=== PATIENT | female | born 1970 | race Caucasian/White ===

== ENCOUNTER 2017-01-03 08:14 | Day surgery (SDC) | payer OTHER ==
[2017-01-02 16:07] VITALS: BMI 35.3
[2017-01-03] MEDS ORDERED: PROPOFOL 20 ML ONE ×2 (10:22)
[2017-01-03 10:56] VITALS: TEMP 98.6
[2017-01-03 11:40] VITALS: BP 102/65; PULSE 83
--- NOTE | 2017-01-04 17:36 | PATH ---
Surgical Pathology Report Patient Name: ERNESTO POTTER [facility]. Rec. #: [id number] /Age/Gender: 1970 (Age: 46) / F Account: [id number] Location: [facility]-ENDOSCOPY Taken: 01/03/2017 Received: 01/03/2017 Reported: 01/04/2017 Physicians: Dio Treadwell M.D. Specimen(s) Received BX EROSION Clinical History Epigastric pain, GERD, nausea/vomiting Erosions antrum Final Diagnosis STOMACH, ANTRUM, EROSIONS, BIOPSY: GASTRIC OXYNTIC MUCOSA WITH SEVERE CHRONIC ACTIVE GASTRITIS. IMMUNOHISTOCHEMICAL STAIN FOR H. PYLORI IS POSITIVE (NUMEROUS). Electronically Signed Ambar Lerma M.D. Gross Description Received in formalin, labeled "biopsy erosions" are 2 jhaveri, irregular portions of soft tissue averaging 0.4 cm. in greatest dimension. The specimens are submitted in toto in one cassette. 01/03/201701/03/2017
== END 2017-01-03 13:06 | disposition home or self-care (01) ==
LOC: JASU-ENDO 08:14
PROVIDERS: ATTEND Internal Medicine Gastroenterology
PROC: 0DB68ZX Excision of Stomach, Via Natural or Artificial Opening Endoscopic, Diagnostic (ICD-10-PCS; principal; 2017-01-03 09:30)
DX: K25.9 Gastric ulcer, unspecified as acute or chronic, without hemorrhage or perforation (principal)
CPT/HCPCS: 84703; 88305-TC; 88342-TC

== ENCOUNTER 2017-09-28 15:34 | Emergency (ER) | payer OTHER ==
[2017-09-28 15:40] VITALS: BP 150/100; PULSE 115; TEMP 99.1; BMI 36.3
--- NOTE | 2017-09-28 17:08 | PDOC ---
Attending Attestation - HPI HPI: 09/28/17 17:51 47 year old female who denies any significant past medical history who presents to the ED complaining of chest pain that is pressure like, worse with inspiration, and radiates to the back. She reports associated left calf pain. She also reports associated headache. Noted to be tachycardic on arrival. Denies cigarette smoking, OCP use, long periods of immobilization. Denies f/c. Denies n/v/d. - Physicial Exam PE: 09/28/17 17:53 Constitutional: Awake, alert, oriented. No acute distress. Head: Normocephalic. Atraumatic Eyes: PERRL. EOMI. Conjunctivae are not pale. ENT: Mucous membranes are moist and intact. Posterior pharynx without exudates or erythema. Uvula midline. Neck: Supple. Full ROM. No lymphadenopathy. Cardiovascular: Regular rate. Regular rhythm. S1, S2 regular. Distal pulses are 2+ and symmetric. Pulmonary/Chest: No evidence of respiratory distress. Clear to auscultation bilaterally No wheezing, rales or rhonchi. Abdominal: Soft and non-distended. There is no tenderness. No rebound, guarding or rigidity. No organomegaly. No palpable masses. Good bowel sounds. Back: No CVA tenderness. Musculoskeletal: No edema. No cyanosis. No clubbing. Full range of motion in all extremities. Nocalf tenderness. Radial/pedal pulses are intact and 2+ bilaterally Skin: Skin is warm and dry. No petechiae. No purpura. Neurological: Alert and oriented to person, place, and time. Cranial nerves II -XII are grossly intact. Normal speech. Strength is grossly symmetric. No sensory deficits. Psychiatric: Good eye contact. Normal interaction, affect and behavior. - Medical Decision Making 09/28/17 17:54 Documentation prepared by Rufina Martinez, acting as medical voucher clerk for Conchita García DO. <Rufina Martinez - Last Filed: 09/28/17 17:51> - Resident Resident Name: SlyEdmond - ED Attending Attestation I have performed the following: I have examined & evaluated the patient, The case was reviewed & discussed with the resident, I agree w/resident's findings & plan, Exceptions are as noted - Critical Care Time Total Critical Care Time: 35 Critical Care Statement: The care of this patient involved high complexity decision making to prevent further life threatening deterioration of the patient 's condition and/or to evaluate & treat vital organ system(s) failure or risk of failure. - Medical Decision Making 09/28/17 17:08 I, Dr. Conchita García, DO, attest that this document has been prepared under my direction and personally reviewed by me in its entirety. I further attest, that it accurately reflects all work, treatment, procedures and medical decision -making performed by me. 09/28/17 19:06 a/p: 47yo female with tavera today, cp, and recent travel -had ankle swelling after the travel - pleuritic cp -also with low grade fever, has a cough - productive green sputum -suspect mucopurulent bronchitis vs PE -low grade temp -no meningeal signs -no neck ttp -neuro intact -will obtain labs, ekg, cxr, trop -cta chest -will monitor and reassess 09/28/17 19:23 cp resolved and tavera resolved after IV tylenol cta pending 09/29/17 00:25 cta negative for acute pathology will treat for mucopurulent bronchitis with azithromycin <Conchita García - Last Filed: 09/29/17 00:26> Heart Score/ECG Review - ECG Intrepretation Comment:: 09/28/17 19:23 sinus tach at 109, nl axis, S1Q3T3, no acute st elevations, abnl ekg <Conchita García - Last Filed: 09/29/17 00:26>
[2017-09-28] MEDS ORDERED: METOCLOPRAMIDE HCL INJECTION 10 MG/2 ML VIAL IVPUSH ONE (17:09)
[2017-09-28] MEDS ORDERED: ACETAMINOPHEN 1000 MG/100 ML VIAL (NON FORMULARY) IVPB ONE (17:09)
[2017-09-28] MEDS ORDERED: SODIUM CHLORIDE 0.9% 1000 ML INFUS.BAG IV ONE (17:09)
[2017-09-28] MEDS ORDERED: ACETAMINOPHEN INJECTION 100 ML IVPB ONE (18:06)
[2017-09-28] MEDS ORDERED: METOCLOPRAMIDE HCL INJECTION 10 MG/2 ML VIAL ONE (18:06)
--- NOTE | 2017-09-28 18:09 | PDOC ---
History of Present Illness - General Chief Complaint: Headache Stated Complaint: HEADACHE, ABD PAIN Time Seen by Provider: 09/28/17 15:42 History Source: Patient Exam Limitations: No Limitations - History of Present Illness Initial Comments: 09/28/17 18:04 47 F with no pmh presents to the ED for one day of pleuritic chest pain over sternum, cough, and right leg pain. States that the pain is radiating to the back, worse when she takes a deep breath. Works as a medical transporter, drives a lot all day. Came back from a 5 hour flight from [facility] 6 weeks ago. Denies hemoptysis, no hx of cancer, no recent surgery. BP equal in both arms, 96% room air, tachy at 116 - 120 Past History - Past Medical History Allergies/Adverse Reactions: Allergies Allergy/AdvReac Type Severity Reaction Status Date / Time No Known Allergies Allergy Verified 04/29/17 11:26 Home Medications: Ambulatory Orders Azithromycin [Zithromax 250mg Tablets -] 250 mg PO DAILY #4 tablet 09/28/17 Excedrin Extra Strength Caplet 2 tab PRN 09/28/17 COPD: No DVT: No GI Disorders: Yes (GERD) - Surgical History Cholecystectomy: Yes - Suicide/Smoking/Psychosocial Hx Smoking History: Never smoked Have you smoked in the past 12 months: No Hx Alcohol Use: No Drug/Substance Use Hx: No Substance Use Type: None Review of Systems - Review of Systems Able to Perform ROS?: Yes Is the patient limited Cuban proficient: No Constitutional: No: Symptoms Reported HEENTM: No: Symptoms Reported Respiratory: Yes: Cough, Shortness of Breath. No: Hemoptysis Cardiac (ROS): Yes: Chest Pain ABD/GI: Yes: See HPI. No: Abdominal Distended, Constipated, Diarrhea, Nausea : No: See HPI *Physical Exam - Vital Signs Last Vital Signs Temp Pulse Resp BP Pulse Ox 99.1 F 115 H 18 150/100 98 09/28/17 15:38 09/28/17 15:38 09/28/17 15:38 09/28/17 15:38 09/28/17 15:38 - Physical Exam General Appearance: Yes: Appropriately Dressed, Mild Distress, Obese HEENT: positive: EOMI, ASHLEY, Normal ENT Inspection Respiratory/Chest: positive: Chest Tender (over sternum), Lungs Clear, Normal Breath Sounds. negative: Respiratory Distress Cardiovascular: positive: Regular Rhythm, S1, S2, Tachycardia Gastrointestinal/Abdominal: positive: Normal Bowel Sounds, Flat, Soft. negative : Tender ED Treatment Course - LABORATORY CBC & Chemistry Diagram: 09/28/17 18:02 09/28/17 17:55 - ADDITIONAL ORDERS Additional order review: Laboratory Results 09/28/17 09/28/17 18:02 17:55 PT with INR 11.60 INR 1.03 PTT (Actin FS) 25.0 L Sodium 141 Potassium 4.0 Chloride 102 Carbon Dioxide 31 Anion Gap 8 BUN 10 Creatinine 0.7 Creat Clearance w eGFR > 60 Random Glucose 102 Calcium 9.8 Magnesium 1.9 Total Bilirubin 0.5 AST 16 ALT 29 Alkaline Phosphatase 90 Total Protein 7.7 Albumin 3.6 09/28/17 18:02 RBC 4.63 MCV 89.9 MCHC 34.2 RDW 13.3 MPV 7.6 Neutrophils % 69.3 Lymphocytes % 20.8 D Monocytes % 8.7 D Eosinophils % 0.4 Basophils % 0.8 - RADIOLOGY Radiology Studies Ordered: Category Date Time Status CHEST CTA [CT] Stat CT Scan 09/28/17 17:05 Completed CHEST PA & LAT [RAD] Stat Radiology 09/28/17 17:02 Completed - Medications Given in the ED: ED Medications Discontinued Medications Generic Name Dose Route Start Last Admin Trade Name Doreen PRN Reason Stop Dose Admin Acetaminophen 1,000 mg 09/28/17 17:09 09/28/17 18:14 Ofirmev Injection - IVPB 09/28/17 17:10 1,000 mg ONCE ONE Administration Metoclopramide HCl 10 mg 09/28/17 17:09 09/28/17 18:05 Reglan Injection - IVPUSH 09/28/17 17:10 10 mg ONCE ONE Administration Sodium Chloride 1,000 ml 09/28/17 17:09 09/28/17 18:13 Normal Saline - IV 09/28/17 17:10 1,000 ml ONCE ONE Administration Medical Decision Making - Medical Decision Making 09/28/17 18:45 Ruling out PE, Wells score of 4.5 EKG: Sinus tachycardia, nonspecific ST and T wave abnormality. Basic labs pending CTA pending 09/28/17 21:51 Negative CTA, Giving patient protonix to cover for PUD and Azithromycin for bronchitis. *DC/Admit/Observation/Transfer Diagnosis at time of Disposition: Acute bronchitis - Discharge Dispostion Disposition: HOME Condition at time of disposition: Improved Decision to Admit order: No - Referrals Referrals: Isidoro Kwok MD [Primary Care Provider] - - Patient Instructions Printed Discharge Instructions: DI for Acute Bronchitis Additional Instructions: Follow up with your primary care provider within 4 days. Come back to the emergency department for any new, worsening or concerning symptom. - Post Discharge Activity
[2017-09-28 18:25] LABS: BASO % 0.8 % (0-2.0); EOS % 0.4 % (0-4.5); HEMATOCRIT 41.6 % (32.4-45.2); HEMOGLOBIN 14.3 GM/dL (10.7-15.3); LYMPH % 20.8 % (8-40); MCH 30.8 pg (25.7-33.7); MCHC 34.2 g/dl (32.0-36.0); MEAN CELL VOLUME 89.9 fl (80-96); MEAN PLT VOLUME 7.6 fl (7.5-11.1); MONO % 8.7 % (3.8-10.2); NEUT % 69.3 % (42.8-82.8); PLATELET COUNT 333 K/MM3 (134-434); RBC 4.63 M/mm3 (3.60-5.2); RDW 13.3 % (11.6-15.6); WHITE BLOOD COUNT 9.7 K/mm3 (4.0-10.0)
[2017-09-28 18:42] LABS: ALBUMIN 3.6 g/dl (3.4-5.0); ALK PHOS 90 U/L (45-117); ANION GAP 8 (8-16); BILIRUBIN,TOTAL 0.5 mg/dL (0.2-1.0); BLOOD UREA NITROGEN 10 mg/dL (7-18); CALCIUM 9.8 mg/dL (8.5-10.1); CHLORIDE 102 mmol/L (98-107); CO2 31 mmol/L (21-32); CREATININE 0.7 mg/dL (0.55-1.02); GLUCOSE,RANDOM 102 mg/dL (74-106); SGPT/ALT 29 U/L (12-78); SODIUM 141 mmol/L (136-145); TOT PROT 7.7 g/dl (6.4-8.2)
[2017-09-28 18:43] LABS: MAGNESIUM 1.9 mg/dL (1.8-2.4); SGOT/AST 16 U/L (15-37)
[2017-09-28 19:07] LABS: INR 1.03 (0.82-1.09); PROTHROMBIN TIME (PATIENT) 11.6 SEC (9.7-13.0)
[2017-09-28] MEDS ORDERED: PANTOPRAZOLE SODIUM 40 MG VIAL IVPUSH ONE (21:22)
[2017-09-28] MEDS ORDERED: SODIUM CHLORIDE 1,000 ML IV STA (21:22)
[2017-09-28] MEDS ORDERED: FAMOTIDINE 20 MG/50 ML IVPB 20 MG/50 ML MG IVPB ONE (21:22)
[2017-09-28] MEDS ORDERED: AZITHROMYCIN 250 MG TABLET PO ONE (21:26)
[2017-09-28] MEDS ORDERED: AZITHROMYCIN 250 MG TABLET ONE (21:57)
[2017-09-28] MEDS ORDERED: PANTOPRAZOLE SODIUM 40 MG/100 ML BAG IVPB ONE (21:57)
--- NOTE | 2017-09-29 11:33 | EKG ---
Test Reason : Blood Pressure : / mmHG Vent. Rate : 109 BPM Atrial Rate : 109 BPM P-R Int : 160 ms QRS Dur : 076 ms QT Int : 336 ms P-R-T Axes : 033 005 003 degrees QTc Int : 452 ms SINUS TACHYCARDIA NONSPECIFIC ST AND T WAVE ABNORMALITY ABNORMAL ECG WHEN COMPARED WITH ECG OF 29-JUN-2009 02:40, VENT. RATE HAS INCREASED BY 44 BPM NONSPECIFIC T WAVE ABNORMALITY NOW EVIDENT IN ANTERIOR LEADS Confirmed by CHRIS AGUILAR, ANGEL ([id number]) on 09/29/2017 11:33:33 AM Referred By: Confirmed By:ANGEL PEREZ MD
== END 2017-09-28 22:30 | disposition home or self-care (01) ==
LOC: JER 15:34
PROC: 3E033NZ Introduction of Analgesics, Hypnotics, Sedatives into Peripheral Vein, Percutaneous Approach (ICD-10-PCS; principal; 2017-09-28)
PROC: 3E033GC Introduction of Other Therapeutic Substance into Peripheral Vein, Percutaneous Approach (ICD-10-PCS; 2017-09-28)
PROC: 3E033GC Introduction of Other Therapeutic Substance into Peripheral Vein, Percutaneous Approach (ICD-10-PCS; 2017-09-28)
PROC: 3E0337Z Introduction of Electrolytic and Water Balance Substance into Peripheral Vein, Percutaneous Approach (ICD-10-PCS; 2017-09-28)
DX: J20.9 Acute bronchitis, unspecified (principal); M79.605 Pain in left leg
CPT/HCPCS: 36415; 71046-TC-FY; 71275-TC; 80053; 83735; 85025; 85610; 85730; 93005; 93010; 99283-25; J0131; J7030